=== PATIENT | male | born 1955 | race Caucasian/White ===

== ENCOUNTER 2021-02-09 14:08 | Emergency (ER) | payer MEDICARE ==
[~2021-02-09] VITALS: Ht 185.4 cm; Wt 88.0 kg
[2021-02-09] MEDS ORDERED: KETOROLAC 30 MG/1 ML IM ONE (14:30)
[2021-02-09] MEDS ORDERED: DIAZEPAM 5 MG TABLET PO ONE (14:30)
--- NOTE | 2021-02-09 15:18 | NUR ---
Pt to room from lobby.
[2021-02-09] MEDS ORDERED: DIAZEPAM 5 MG TABLET ONE (15:43)
[2021-02-09] MEDS ORDERED: KETOROLAC 30 MG/1 ML ONE (15:43)
--- NOTE | 2021-02-09 15:48 | NUR ---
THIS IS A 66 YO M W/ C/O LOW BACK PAIN THAT RADIATES DOWN INTO LT LEG. PT REPORTS HX OF SAME, HOWEVER INCREASING IN PAIN. PT RESTING ON GURNEY W/ CALL LIGHT IN REACH AND SIDE RAILS UPX2. RESP EVEN AND UNLABORED, LORRIE.
--- NOTE | 2021-02-09 16:48 | NUR ---
PT REQUESTING TO LEAVE. EDUCATED DC PPWK AND RX HAS NOT BEEN PRINTED YET.
[2021-02-09 17:04] VITALS: BP 160/100
--- NOTE | 2021-02-09 17:04 | NUR ---
Patient given discharge instructions and they have confirmed that they understand the instructions. Patient wheeled to dc desk per pt request. Pt able to transfer to and from wheelchair w/o difficulty. Picked up by daughter.
== END 2021-02-09 17:05 | disposition home or self-care (01) ==
LOC: ED 14:38
DX: M54.16 Radiculopathy, lumbar region (principal); F17.200 Nicotine dependence, unspecified, uncomplicated
CPT/HCPCS: 72110; 96372; 99283; J1885; J7512